=== PATIENT | male | born 1995 | race African-American/Black ===

== ENCOUNTER 2016-04-02 00:58 | Emergency (ER) | payer SELFPAY ==
[2016-04-02 01:11] VITALS: BMI 26.2
--- NOTE | 2016-04-02 01:20 | EDPRACDOC ---
- General Information Chief Complaint: Neurological Deficit Present Stated Complaint: SYNCOPE Time Seen by Provider: 04/02/16 01:14 Information Source: Patient, Family, First Assist Mode Of Arrival: Ambulance Home Medications: Home Medications Ketoprofen 50 mg PO BID PRN #20 capsule 09/10/15 Allergies/Adverse Reactions: Allergies Allergy/AdvReac Type Severity Reaction Status Date / Time tramadol HCl [From Ultra] Allergy Rash-Genera Verified 09/10/15 15:37 lized - History of Present Illness Onset: NURSE LDR Medications/Treatment NURSE LDR EMS Treatment ALS IV Yes HPI: PATIENT TAKES OXYCODONE EVERY DAY FOR CHRONIC PAIN. FAMILY STATES PATIENT HAS BEEN DIFFICULT TO WAKE UP AND HAD 2 SYNCOPAL EPISODES TONIGHT. NO SOB. NO CHEST PAIN. Duration: Since Injury Postsyncopal phase:: Reports: Rapid recovery - Treatment Prior to ED Arrival Reported Medications/Treatment NURSE LDR EMS Treatment ALS IV Yes ED Past Medical History - History Reviewed Yes Nurses notes reviewed and agree except as marked Travel Outside of [place] in the Last 3 Months?: No - Patient Medical History Psychological History: Denies: Depression - Social Medical History Smoking Status: Never smoker Lives With: Family Lives In: Home EDM Review of Systems - Review of Systems ROS Negative Except as Marked: Yes All systems reviewed and were negative except as marked Constitutional: No Symptoms Reported. negative: Fever, Chills, Weakness, Fatigue, Loss of Appetite Eyes: No Symptoms Reported. negative: Redness, Blurred Vision, Double Vision, Discharge, Pain, Light Sensitive, Photophobia Ears: No Symptoms Reported. negative: Pain, Hearing Loss, Drainage, Ear Pulling Throat: No Symptoms Reported. negative: Pain, Swelling Nose: No Symptoms Reported. negative: Congestion, Bleeding, Discharge, Injection, Swelling, Deformity, Ecchymosis, Tender, Abrasion, Laceration Mouth: No Symptoms Reported. negative: Pain, Drooling Respiratory: No Symptoms Reported. negative: Cough, Brassy Cough, Barky Cough, Shortness of Breath, Wheezing, Hemoptysis Cardiovascular: Syncope. negative: Chest Pain, Cyanosis, Edema, Orthopnea, Palpitations, PND, Skin Mottling Gastrointestinal: No Symptoms Reported. negative: Pain, Constipation, Nausea, Vomiting, Diarrhea, Melena, Formula Intolerance Genitourinary: No Symptoms Reported. negative: Dysuria, Hematuria, Frequency, Discharge, Bleeding, Testicular Pain, Neurological: No Symptoms Reported. negative: Headache, Dizziness, Seizure, Numbness, Weakness, Speech Difficulty, Gait Difficulty Musculoskeletal: Back. negative: Arm, Ankle, Chestwall, Elbow, Forearm, Femur, Foot, Hand, Hip, Knee, Leg, Neck, Pelvis, Ribs, Shoulder, Wrist Integumentary: No Symptoms Reported. negative: Itching, Rash, Bruising, Wound Allergic/Immunologic: No Symptoms Reported. negative: Hives, Itching Hematologic: No Symptoms Reported. negative: Lymphadenopathy, Easy Bruising, Easy Bleeding Endocrine: No Symptoms Reported. negative: Weight Gain, Weight Loss Psychiatric: No Symptoms Reported. negative: Anxiety, Depression, Hallucinations, Insomnia, Suicidal - Physical Exam Constitutional: Somnolent Oriented to: Person, Place Last recorded Vital Signs: Last Vital Signs Temp Pulse 78 04/02/16 01:05 Resp 20 04/02/16 01:05 BP 157/85 04/02/16 01:05 Pulse Ox 97 04/02/16 01:05 Oxygen Pulse Oxygen Saturation 97 O2 Device Room Air Oxygen Flow Rate Fraction of Inspired Oxygen ( FIO2) - HEENT Head: Normal ( normocephalic) Eye Exam: Normal (PERRL, EOMI, Sclera white) Oropharynx: Normal (Pharynx:Moist without exudate,Gums-no swelling) Tympanic Membrane: Normal ENT EAC: Normal TMJ: Normal Nose: No Symptoms Reported (septum midline) Neck: Normal (FROM, trachea at midline) - Respiratory/Cardiovascular Respiratory: Normal - CTA (BBS clear to auscultation without adventitious sounds ) Cardiovascular: Normal (RRR without murmur, gallop or rub) - GI Auscultation: Normal (NABS) Palpation: Normal (Soft,No rebound or guarding, non distended) Tenderness: Non tender Almaraz's Sign: Negative - Musculoskeletal Back: Normal (Non-Tender) Extremities: Normal (Normal tone, Pulses 2+ No cyanosis or edema, FROM) - Integumentary Skin: Normal, Warm, Dry Lymphatics: Normal (no adenopathy) - Neurologic Memory Impaired: Normal Motor Function: Normal (Normal tone, Pulses 2+ No cyanosis or edema, FROM) Cranial Nerve: Normal (CN II-X11 intact sensation, strength 5/5) Cerebellar: Normal Mood Description: Normal Perception: Normal - Re-evaluation Re-evaluation 1 Re-evaluation Time: 02:50 (PATIENT NOW REVEALS HE TOOK NUMEROUS OXYCODONE TONIGHT.) - Results 04/02/16 03:08 04/02/16 03:08 Decision Time to Discharge: 04:37 - Departure Yes I personally saw and evaluated the patient. Disposition: Home Condition: Good Final Diagnosis: Narcotic overdose Qualifiers: Encounter type: initial encounter Injury intent: accidental or unintentional Qualified Code(s): T40.601A - Poisoning by unspecified narcotics, accidental ( unintentional), initial encounter Instructions: Narcotic Abuse (ED) Education/Counseling Given To: Patient Education/Counseling Given Regarding: Diagnosis, Treatment, Prognosis, Follow Up Referrals: None,No Provider [Primary Care Provider] - One Week Ben Romero MD [Staff Physician] - One Week
--- NOTE | 2016-04-02 01:31 | DIRPT ---
CLINICAL DATA: Acute onset of syncope. Neck pain. Initial encounter. EXAM: PORTABLE CHEST 1 VIEW COMPARISON: Thoracic spine radiographs performed 11/11/2012 FINDINGS: The lungs are well-aerated and clear. There is no evidence of focal opacification, pleural effusion or pneumothorax. The cardiomediastinal silhouette is within normal limits. No acute osseous abnormalities are seen. A small left-sided cervical rib is noted. IMPRESSION: 1. No acute cardiopulmonary process seen. No displaced rib fractures identified. 2. Small left-sided cervical rib noted. Electronically Signed By: Conrado Abdalla M.D. On: 04/02/2016 01:29
--- NOTE | 2016-04-02 01:57 | DIRPT ---
CLINICAL DATA: Took 80 mg of oxycodone and fell asleep. Two episodes of syncope and fall when standing up. Grogginess. Concern for cervical spine injury. Initial encounter. EXAM: CT HEAD WITHOUT CONTRAST CT CERVICAL SPINE WITHOUT CONTRAST TECHNIQUE: Multidetector CT imaging of the head and cervical spine was performed following the standard protocol without intravenous contrast. Multiplanar CT image reconstructions of the cervical spine were also generated. COMPARISON: None. FINDINGS: CT HEAD FINDINGS There is no evidence of acute infarction, mass lesion, or intra- or extra-axial hemorrhage on CT. The posterior fossa, including the cerebellum, brainstem and fourth ventricle, is within normal limits. The third and lateral ventricles, and basal ganglia are unremarkable in appearance. The cerebral hemispheres are symmetric in appearance, with normal cabezas-white differentiation. No mass effect or midline shift is seen. There is no evidence of fracture; visualized osseous structures are unremarkable in appearance. The orbits are within normal limits. The paranasal sinuses and mastoid air cells are well-aerated. No significant soft tissue abnormalities are seen. CT CERVICAL SPINE FINDINGS There is no evidence of fracture or subluxation. Vertebral bodies demonstrate normal height and alignment. Intervertebral disc spaces are preserved. Prevertebral soft tissues are within normal limits. The visualized neural foramina are grossly unremarkable. The thyroid gland is unremarkable in appearance. The visualized lung apices are clear. No significant soft tissue abnormalities are seen. IMPRESSION: 1. No evidence traumatic intracranial injury or fracture. 2. No evidence of fracture or subluxation along the cervical spine. Electronically Signed By: Conrado Abdalla M.D. On: 04/02/2016 01:54
--- NOTE | 2016-04-02 02:44 | DIRPT ---
CLINICAL DATA: 20-year-old male with fall and low back pain. EXAM: LUMBAR SPINE - COMPLETE 4+ VIEW COMPARISON: Radiograph dated 11/15/2011 FINDINGS: No acute fracture or subluxation. The vertebral body heights and disc spaces are maintained the visualized spinous and transverse processes appear intact. The soft tissues appear unremarkable. IMPRESSION: No acute/traumatic lumbar spine pathology. Electronically Signed By: Zheng Fermin M.D. On: 04/02/2016 02:41
[2016-04-02 03:17] LABS: AUTOMATED EOSINOPHIL 2.8 % (0-5); AUTOMATED LYMPH 40.1 % (17-44); AUTOMATED MONOCYTE 7.6 % (3-10); AUTOMATED NEUTROPHIL 48.5 % (45-76); MPV 8.1 fL (7.4-10.4)
[2016-04-02 03:29] LABS: BLOOD UREA NITROGEN 11 MG/DL (9-20); CALCIUM 9.2 MG/DL (8.4-10.2); CALCULATED OSMOLALITY 267 MOs/Kg (270-290); CHLORIDE 100 mEq/L (98-107); ETOH-MGDL < 10 mg/dL; GLUCOSE 88 MG/DL (70-99); SODIUM LEVEL 140 mEq/L (137-146); TOTAL PROTEIN 7.3 G/DL (6.3-8.2)
[2016-04-02 03:57] LABS: ALL NEG? NO
[2016-04-02 04:05] LABS: MDMA* NEG (NEGATIVE); METHAMPHETAMINES NEG (NEGATIVE); OXYCODONE NEG (NEGATIVE)
[2016-04-02 04:52] VITALS: BP 138/81; PULSE 74
== END 2016-04-02 04:49 | disposition home or self-care (01) ==
LOC: ED 00:58
DX: T40.601A Poisoning by unspecified narcotics, accidental (unintentional), initial encounter (principal)
CPT/HCPCS: 36415; 70450; 71010; 72110; 72125; 80053; 80307; 80329; 85025; 93005; 99284